=== PATIENT | male | born 2000 | race African-American/Black ===

== ENCOUNTER 2022-10-21 12:33 | Emergency (ER) | payer MEDICAID, OTHER ==
[2022-10-21] MEDS ORDERED: Cephalexin 250 MG CAP ONE (13:38)
== END 2022-10-21 13:32 | disposition home or self-care (01) ==
LOC: BURERS 12:33
DX: I10 Essential (primary) hypertension (principal); L03.032 Cellulitis of left toe; E86.0 Dehydration; L60.0 Ingrowing nail
CPT/HCPCS: 71045; 93005

== ENCOUNTER 2023-12-26 19:41 | Emergency (ER) | payer OTHER ==
[2023-12-26] MEDS ORDERED: Labetalol HCl 200 MG TAB PO SCH (20:30)
== END 2023-12-26 20:28 | disposition home or self-care (01) ==
LOC: BURERS 19:41
DX: I10 Essential (primary) hypertension (principal); Z79.899 Other long term (current) drug therapy
CPT/HCPCS: 99283

== ENCOUNTER 2024-01-09 16:30 | Emergency (ER) | payer OTHER ==
[2024-01-09] MEDS ORDERED: Ibuprofen 800 MG TAB ONE (16:53)
[2024-01-09] MEDS ORDERED: Lisinopril 20 MG TAB ONE (16:53)
== END 2024-01-09 17:00 | disposition home or self-care (01) ==
LOC: BURERS 16:30
DX: I10 Essential (primary) hypertension (principal)
CPT/HCPCS: 99283

== ENCOUNTER 2025-03-26 10:23 | Emergency (ER) | payer MEDICAID, OTHER ==
[2025-03-26] MEDS ORDERED: Ibuprofen 800 MG TAB ONE (11:07)
== END 2025-03-26 11:25 | disposition home or self-care (01) ==
LOC: BURERS 10:23
DX: U07.1 COVID-19 (principal); I10 Essential (primary) hypertension
CPT/HCPCS: 87428; 99283